=== PATIENT | female | born 1955 | race Caucasian/White ===

== ENCOUNTER 2017-08-28 05:12 | Emergency (ER) | payer OTHER ==
[~2017-08-28] VITALS: Ht 162.6 cm; Wt 96.2 kg
[2017-08-28] MEDS ORDERED: TRAMADOL HCL 50 MG TAB PO ONE (05:15)
--- NOTE | 2017-08-28 05:50 | Diagnostic Imaging Report ---
EXAM: ANKLE 3 + VIEWS RIGHT, AP, lateral and oblique INDICATION: Fall, right lateral ankle pain COMPARISON: None FINDINGS: BONES: No acute fractures. JOINTS: No malalignment. SOFT TISSUES: Mild soft tissue swelling around the lateral malleolus. IMPRESSION: No evidence of a right ankle fracture. Signed by: Dr. Jocelin Bean M.D. on 08/28/2017 5:46 AM
== END 2017-08-28 06:01 | disposition home or self-care (01) ==
LOC: ER 05:12
DX: S93.421A Sprain of deltoid ligament of right ankle, initial encounter (principal); X50.1XXA Overexertion from prolonged static or awkward postures, initial encounter; Y93.01 Activity, walking, marching and hiking; Y92.008 Other place in unspecified non-institutional (private) residence as the place of occurrence of the external cause; I10 Essential (primary) hypertension; I25.10 Atherosclerotic heart disease of native coronary artery without angina pectoris; E78.5 Hyperlipidemia, unspecified
CPT/HCPCS: 99283

== ENCOUNTER 2022-01-16 14:24 | Emergency (ER) | payer MEDICARE, OTHER ==
[~2022-01-16] VITALS: Ht 162.6 cm; Wt 96.2 kg
[2022-01-16] MEDS ORDERED: TETANUS/DIPHTHERIA TOX ADULT 0.5 ML SYR IM ONE (14:45)
[2022-01-16] MEDS ORDERED: AMOX TR-K CLV1 EAC2 PO (16:21)
== END 2022-01-16 16:30 | disposition home or self-care (01) ==
LOC: ER 14:33
DX: S02.2XXA Fracture of nasal bones, initial encounter for closed fracture (principal); S01.81XA Laceration without foreign body of other part of head, initial encounter; I10 Essential (primary) hypertension; I25.10 Atherosclerotic heart disease of native coronary artery without angina pectoris; Z23 Encounter for immunization; W01.198A Fall on same level from slipping, tripping and stumbling with subsequent striking against other object, initial encounter; Y92.000 Kitchen of unspecified non-institutional (private) residence as the place of occurrence of the external cause; Z87.891 Personal history of nicotine dependence
CPT/HCPCS: 70450; 70486; 72125; 90714; 99283